=== PATIENT | male | born 1995 | race Caucasian/White ===

== ENCOUNTER 2019-01-05 13:44 | Emergency (ER) | payer OTHER ==
[~2019-01-05] VITALS: Ht 170.2 cm; Wt 68.2 kg
[2019-01-05 14:02] VITALS: Ht 170.2 cm; Wt 68.2 kg
[2019-01-05] MEDS ORDERED: ONDANSETRON (ODT) 4 MG TAB ODT STA (17:33)
[2019-01-05 17:49] VITALS: BP 132/85; PULSE 101; RESP 15
--- NOTE | 2019-01-10 06:14 | ERD ---
ER Documentation Chief Complaint Chief Complaint ASHWINI found on the street sleeping, pt arousable used heroin last night HPI Is a 23-year-old male that was brought into the emergency department by EMS after he was found sleeping on the street. There is no signs of trauma. There is drug paraphernalia as the patient utilizes IV heroin. He states his last use of heroin was roughly 12 hours prior to arrival. The patient denies a headache. He denies any nausea or vomiting. He denies chest pain or shortness of breath. ROS All systems reviewed and are negative except as per history of present illness. Medications Home Meds Unable to Obtain Active Prescriptions or Reported Meds Allergies Allergies: Coded Allergies: No Known Allergy (Unverified , 01/05/19) PMhx/Soc History of Surgery: Yes (stomach ) Anesthesia Reaction: No Hx Neurological Disorder: No Hx Respiratory Disorders: Yes (Asthma) Hx Cardiac Disorders: No Hx Psychiatric Problems: No Hx Miscellaneous Medical Probl: No Hx Alcohol Use: Yes (occassionally ) Hx Substance Use: Yes (heroin last night) Hx Tobacco Use: Yes Smoking Status: Light tobacco smoker Physical Exam Physical Exam Constitutional:Well-developed. Disheveled. HEENT:Normocephalic. Atraumatic.Pupils were 3 mm equal round reactive to light. Moist mucous membranes.No tonsillar exudates. Neck: No nuchal rigidity. No lymphadenopathy. No posterior cervical spine tenderness or step-offs. Respiratory: Not using accessory muscles of respiration.Lungs were clear to auscultation bilaterally. No rhonchi. No rales. No wheezing. Cardiovascular: Regular rate regular rhythm.No murmurs. No rubs were appreciated.S1, S2 normal. Distal pulses are palpable 2+ bilaterally. GI: Abdomen was soft. Nontender. Non Distended. No pulsatile abdominal masses or bruits. No rebound. No guarding. Bowel sounds were present and normal. Muscle skeletal: Full range of motion of both the upper and lower extremities bilaterally.Normal muscle tone.No assymetrical calf tenderness or swelling. Skin: No petechia, no purpura. No lesions on the palms or the soles of the feet. No maculopapular rash. NEURO: Patient is drowsy but easily arousable with sternal rub. Gait observed and patient was able to ambulate with no ataxia. Results 24 hrs Laboratory Tests Test 01/05/19 14:10 White Blood Count 8.3 10^3/ul Red Blood Count 4.69 10^6/ul Hemoglobin 14.5 g/dl Hematocrit 41.9 % Mean Corpuscular Volume 89.3 fl Mean Corpuscular Hemoglobin 30.9 pg Mean Corpuscular Hemoglobin Concent 34.6 g/dl Red Cell Distribution Width 12.4 % Platelet Count 205 10^3/UL Mean Platelet Volume 9.5 fl Immature Granulocytes % 0.200 % Neutrophils % 65.9 % Segmented Neutrophils % (Manual) 58 % Band Neutrophils % (Manual) 13 % Lymphocytes % 24.4 % Lymphocytes % (Manual) 16 % Reactive Lymphocytes % (Manual) 3 % Monocytes % 7.5 % Monocytes % (Manual) 6 % Eosinophils % 1.3 % Eosinophils % (Manual) 1 % Basophils % 0.7 % Basophils % (Manual) 2 % Plasma Cells % (manual) 1 % Nucleated Red Blood Cells % 0.0 /100WBC Immature Granulocytes # 0.020 10^3/ul Neutrophils # 5.4 10^3/ul Neutrophils # (Manual) 4.9 10^3/ul Band Neutrophils # 1.0 10^3/ul Lymphocytes (Manual) 1.3 10^3/ul Lymphocytes # 2.0 10^3/ul Reactive Lymphocytes # 0.2 10^3/ul Monocytes # 0.6 10^3/ul Monocytes # (Manual) 0.4 10^3/ul Eosinophils # 0.1 10^3/ul Basophils # 0.1 10^3/ul Basophils # (Manual) 0.1 10^3/ul Plasma Cells # (manual) 0.0 10^3/ul Nucleated Red Blood Cells # 0.0 10^3/ul Platelet Estimate NORMAL Prothrombin Time 13.7 Sec Prothrombin Time Ratio 1.1 INR International Normalized Ratio 1.04 Activated Partial Thromboplast Time 31.0 Sec Sodium Level 142 mmol/L Potassium Level 4.8 mmol/L Chloride Level 102 mmol/L Carbon Dioxide Level 32 mmol/L Anion Gap 8 Blood Urea Nitrogen 13 mg/dl Creatinine 1.16 mg/dl Est Glomerular Filtrat Rate mL/min > 60 mL/min Glucose Level 93 mg/dl Calcium Level 9.1 mg/dl Total Bilirubin 1.2 mg/dl Direct Bilirubin 0.00 mg/dl Indirect Bilirubin 1.2 mg/dl Aspartate Amino Transf (AST/SGOT) 46 IU/L Alanine Aminotransferase (ALT/SGPT) 72 IU/L Alkaline Phosphatase 45 IU/L Total Protein 8.2 g/dl Albumin 4.3 g/dl Globulin 3.90 g/dl Albumin/Globulin Ratio 1.10 Salicylates Level < 1.0 mg/dl Acetaminophen Level < 10.0 ug/ml Ethyl Alcohol Level < 10.0 mg/dl Current Medications Medications Dose Sig/Buzz Start Time Status Last (Trade) Ordered Route PRN Stop Time Admin Dose Reason Admin Ondansetron 8 mg ONCE STAT 01/05/19 DC 01/05/19 HCl (Zofran ODT 17:33 01/05/19 17:49 Odt) 17:34 Procedures/MDM This 19-year-old male who presented to the emergency department changes in his mental status. The patient had a toxic exam consistent with opiate overdose. The patient was placed on a manager monitoring. Patient had no severe left leg abnormalities. Patient had chest radiograph reviewed by myself the radiologist which showed no evidence of aspiration pneumonia. Observation Note: Time: 4 hours Family Hx: No Hypertension Evaluation: Multiple exams showed improving symptoms and no evidence of recur rence of opiate overdose. Narcan was not required as the patient was alert and awake. There is no respiratory depression. The patient was discharged home in fair condition. They were instructed to return to the emergency department at any time if there was any worsening of their condition. The patient stated they would follow up with their PCP in the next 24-48 hours to initiate a suitable medication regimen under the care of their PCP as well as to allow their PCP to monitor any drug reactions. The julian ent was discharged home with prescriptions after they gave informed consent to the new medication. They were also fully informed by myself on the adverse effects and adverse drug interactions in order to provide adequate safeguards to prevent possible adverse reactions to medications. Departure Diagnosis: Primary Impression: Drug abuse Additional Impression: Opiate overdose Encounter type: initial encounter Injury intent: accidental or unintentional Qualified Codes: T40.601A - Poisoning by unspecified narcotics, accidental (unintentional), initial encounter Condition: Stable Patient Instructions: Opiate Abuse ILENE LAMBERT MD Jan 10, 2019 06:14
== END 2019-01-05 17:50 | disposition home or self-care (01) ==
LOC: E/R 13:44
DX: T50.7X1A Poisoning by analeptics and opioid receptor antagonists, accidental (unintentional), initial encounter (principal); F11.10 Opioid abuse, uncomplicated; F17.210 Nicotine dependence, cigarettes, uncomplicated; J45.909 Unspecified asthma, uncomplicated
CPT/HCPCS: 71045; 80053; 80307; 85025; 85610; 85730; 93005; Z7502; Z7610